=== PATIENT | female | born 1970 | race Two or more races ===

== ENCOUNTER 2022-08-25 16:26 | Emergency (ER) | payer BC ==
[~2022-08-25] VITALS: Ht 162.6 cm; Wt 52.6 kg
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
[2022-08-25] MEDS ORDERED: TDAP [DIPH/PERTUSSIS/TET] 0.5 ML VIAL IM ONE ×2 (17:00→17:04)
[2022-08-25] MEDS ORDERED: ACETAMINOPHEN ES 500 MG TABLET ONE (17:15)
[2022-08-25] MEDS ORDERED: LIDOCAINE 2% 20 ML MDV ONE (17:15)
[2022-08-25] MEDS ORDERED: ACETAMINOPHEN ES 500 MG TABLET PO ONE (17:30)
[2022-08-25] MEDS ORDERED: LIDOCAINE 2% 20 ML MDV TP ONE (17:30)
--- NOTE | 2022-08-25 18:40 | NUR ---
SUTURE DONE BY
--- NOTE | 2022-08-25 18:57 | NUR ---
Patient discharged to home in stable condition. Written and verbal after care instructions given. Patient verbalizes understanding of instruction.
[2022-08-25 18:58] VITALS: BP 145/85
[2022-08-25] MEDS ORDERED: BACITRACIN ZINC OINT PACKET 1 EA PACKET TP ONE (19:00)
== END 2022-08-25 18:57 | disposition home or self-care (01) ==
LOC: ER 16:35
DX: S61.210A Laceration without foreign body of right index finger without damage to nail, initial encounter (principal); S60.222A Contusion of left hand, initial encounter; V43.52XA Car driver injured in collision with other type car in traffic accident, initial encounter; Y93.89 Activity, other specified; Y92.89 Other specified places as the place of occurrence of the external cause; Y99.8 Other external cause status
CPT/HCPCS: 99283; 12002; 90471; 90715; 73130; A6403; J3490